=== PATIENT | male | born 1980 | race Caucasian/White ===

== ENCOUNTER 2016-07-06 02:49 | Emergency (ER) | payer OTHER ==
[2016-07-06] MEDS ORDERED: FAMOTIDINE 20 MG INJ ONE (03:52)
[2016-07-06] MEDS ORDERED: ONDANSETRON 4 MG VIAL ONE (03:52)
[2016-07-06] MEDS ORDERED: ALU/MAG/SIM 30 ML UDC ONE (04:25)
[2016-07-06] MEDS ORDERED: LIDOCAINE 2% VISC 15 ML UDC ONE (04:25)
== END 2016-07-06 05:38 | disposition home or self-care (01) ==
LOC: ER 02:49
DX: R10.13 Epigastric pain (principal); K29.00 Acute gastritis without bleeding
CPT/HCPCS: 36415; 71010; 74000; 80053; 81003; 82553; 83690; 84484; 85025; 86677; 93005; 96374; 96375; 99283; J2405